=== PATIENT | female | born 1965 | race Caucasian/White ===

== ENCOUNTER 2017-11-22 06:49 | Day surgery (SDC) | payer OTHER ==
[2017-11-13 11:41] VITALS: BMI 21.2
[2017-11-22] MEDS ORDERED: BUPIVACAINE HCL/EPINEPHRINE/PF 30 ML VIAL IJ ONE (07:09)
[2017-11-22] MEDS ORDERED: PROPOFOL 20 ML ONE ×2 (08:27→09:16)
[2017-11-22] MEDS ORDERED: MIDAZOLAM HCL 2 MG/2 ML SINGLE DOSE VIAL ONE (08:27)
[2017-11-22] MEDS ORDERED: SODIUM CHLORIDE 0.9% P/F 10 ML VIAL IJ ONE (08:28)
[2017-11-22] MEDS ORDERED: DEXAMETHASONE SOD PHOSPHATE 4 MG/1 ML VIAL ONE (08:28)
[2017-11-22] MEDS ORDERED: ONDANSETRON 4 MG/2 ML VIAL ONE (08:28)
[2017-11-22] MEDS ORDERED: ceFAZolin SODIUM 1 GM VIAL ONE (08:28)
[2017-11-22] MEDS ORDERED: KETOROLAC TROMETHAMINE 30 MG/1 ML VIAL ONE ×2 (09:15→10:49)
[2017-11-22] MEDS ORDERED: ONDANSETRON 4 MG/2 ML VIAL IVPUSH PRN (09:39)
[2017-11-22] MEDS ORDERED: LACTATED RINGERS SOLUTION 1,000 ML IV SCH (09:45)
--- NOTE | 2017-11-22 09:49 | DS ---
Physical Examination Vital Signs: Vital Signs Temperature 97.9 F 11/22/17 07:09 Pulse Rate 60 11/22/17 07:09 Respiratory Rate 16 11/22/17 07:09 Blood Pressure 169/79 11/22/17 07:09 O2 Sat by Pulse Oximetry (%) 99 11/22/17 07:24 Discharge Summary Reason For Visit: MEDIAL MENISCAL TEAR LEFT KNEE Condition: Good - Instructions Diet, Activity, Other Instructions: Post Operative Instructions: Knee Arthroscopy Dr Cameron Turk 1. Pain following an arthroscopy is variable. Some patients will have more pain than others. You have been provided with a prescription for medication that contains a narcotic. You are not allowed to drive while on this medication. You should NOT take Tylenol (Acetaminophen) when taking the pain medication ( it will result in an overdose). Feel free to take medications such as Ibuprofen or Naprosyn in addition to the pain medicine if you do not have any problems with the NSAID class of medications. 2. You are allowed to remove the bandages and shower in 24 hours unless directed otherwise. You are not allowed to bathe or go swimming until the sutures are removed. Put band-aids on the sutures after your shower and do not put any creams or lotions over the incisions. 3. You are allowed to put all your weight on the leg and bend your knee, unless directed otherwise. 4. Apply ice to the knee for 15 min every hour or so. You may continue this for as many days as you like. 5. Please call the office to schedule a visit to have your sutures removed. 6. If for any reason you believe you may have an infection or are concerned, please feel free to call me. I can be reached through our office number 24 hours a day. 7. Please call our office with any questions; we will review the surgical findings during your post operative visit. Disposition: HOME - Home Medications Comprehensive Discharge Medication List: Ambulatory Orders Aprepitant [Emend] 40 mg PO ONCE 01/02/16
--- NOTE | 2017-11-22 09:49 | OP ---
Operative Note - Note: Operative Date: 11/22/17 Pre-Operative Diagnosis: left knee MMT/LMT Operation: LKA, PMM, PLM Post-Operative Diagnosis: Same as Pre-op Surgeon: Cameron Turk Rug Receiving Clerk: Jair Michel Anesthesia: General Operative Report Dictated: Yes
[2017-11-22 10:46] VITALS: TEMP 97.5
[2017-11-22 11:28] VITALS: BP 130/66; PULSE 59
--- NOTE | 2017-11-27 18:13 | PATH ---
Surgical Pathology Report Patient Name: BRYAN ROBERTS Med. Rec. #: [id number] /Age/Gender: 1965 (Age: 52) / F Account: [id number] Location: [facility] Taken: 11/22/2017 Received: 11/22/2017 Reported: 11/27/2017 Physicians: Cameron Turk M.D. Specimen(s) Received SHAVINGS LEFT KNEE Clinical History Meniscal tear left knee Final Diagnosis KNEE SHAVINGS, LEFT, ARTHROSCOPY: FRAGMENTS OF CARTILAGE, DENSE FIBROCONNECTIVE TISSUE, ADIPOSE TISSUE, AND REACTIVE SYNOVIUM. Electronically Signed Gia Sandoval M.D. Gross Description Received in formalin, labeled "left knee shavings," is a 2 x 1.5 x 0.4 cm. aggregate of paul-yellow soft tissue fragments. Entire specimen is submitted in one cassette. MLSZ/11/26/2017 sanadal/11/26/2017
== END 2017-11-22 11:30 | disposition home or self-care (01) ==
LOC: FASU 06:49
PROVIDERS: ATTEND Orthopaedic Surgery
PROC: 0SBD4ZZ Excision of Left Knee Joint, Percutaneous Endoscopic Approach (ICD-10-PCS; 2017-11-22)
PROC: 0SBD4ZZ Excision of Left Knee Joint, Percutaneous Endoscopic Approach (ICD-10-PCS; principal; 2017-11-22 09:17)
DX: S83.242A Other tear of medial meniscus, current injury, left knee, initial encounter (principal); S83.282A Other tear of lateral meniscus, current injury, left knee, initial encounter; X58.XXXA Exposure to other specified factors, initial encounter; Y93.9 Activity, unspecified; Y92.9 Unspecified place or not applicable
CPT/HCPCS: 88304-TC; 94760